=== PATIENT | male | born 2000 | race Caucasian/White ===

== ENCOUNTER 2023-07-10 19:39 | Emergency (ER) | payer MEDICAID ==
[~2023-07-10] VITALS: Ht 170.2 cm; Wt 86.0 kg
[2023-07-10 19:45] VITALS: O2SAT 96
[2023-07-10] MEDS ORDERED: MORPHINE SULFATE 4 MG/ML CPJ (NOT FOR IM USE) IV STA (23:53)
[2023-07-10] MEDS ORDERED: ONDANSETRON HCL 4MG/2ML INJ IV STA (23:53)
[2023-07-10 23:57] LABS: BASOPHILS % 0.3 % (0.0-2.0); HEMATOCRIT. 50.8 % (42.0-52.0); LYMPHOCYTES % 11.7 % (20.0-50.0); MEAN CORPUSCULAR HEMOGLOBIN 31.5 pg (28.0-32.0); MEAN CORPUSCULAR HGB CONC 33.5 g/dL (31.0-37.0); MEAN CORPUSCULAR VOLUME 94.2 fL (80.0-94.0); MEAN PLATELET VOLUME 8.7 fl (7.4-10.4); MONOCYTES % 4.2 % (2.0-8.0); NEUTROPHILS % 83.8 % (40.0-76.0); PLATELET 237 x1000/uL (130-400); RED BLOOD CELL COUNT 5.39 mill/uL (4.7-6.1); RED CELL DISTRIBUTION WIDTH 13.3 % (11.6-14.6); WHITE BLOOD COUNT 17.9 x1000/uL (4.5-11.0)
[2023-07-11] MEDS ORDERED: SODIUM CHLORIDE 0.9% 1,000 ML IV ONE
[2023-07-11 01:46] LABS: ALANINE AMINOTRANSFERASE 22 IU/L (10-49); ALBUMIN 4.5 g/dL (3.2-4.8); ASPARTATE AMINOTRANSFERASE 30 IU/L (<34); BILIRUBIN TOTAL 1.5 mg/dL (0.1-1.0); CALCIUM 9.3 mg/dL (8.7-10.4); CARBON DIOXIDE 19 mEq/L (21-32); CHLORIDE 105 mEq/L (98-107); CREATININE 0.9 mg/dL (0.6-1.3); GLUCOSE 92 mg/dL (70-105); POTASSIUM 3.9 mEq/L (3.5-5.1); PROTEIN TOTAL 7.8 g/dL (6.0-8.3); SODIUM 137 mEq/L (136-145); TROPONIN I HIGH SENSITIVITY 24 ng/L (3.0-53); UREA NITROGEN BLOOD 15 mg/dL (9-23)
[2023-07-11 01:53] LABS: ETHANOL BLOOD < 10 mg/dL (<10)
[2023-07-11 02:00] VITALS: TEMP 98
[2023-07-11] MEDS ORDERED: ACETAMINOPHEN 325MG TABLET PO ONE (02:45)
[2023-07-11 03:04] LABS: INR 1.1; PROTHROMBIN TIME 11.5 sec (9.6-11.0)
[2023-07-11 04:00] VITALS: BP 115/67; PULSE 82; RESP 12
[2023-07-11] MEDS ORDERED: KEPP500 MT (04:20)
== END 2023-07-11 04:48 | disposition home or self-care (01) ==
LOC: ER 19:39
DX: R56.9 Unspecified convulsions (principal); R19.7 Diarrhea, unspecified
CPT/HCPCS: 85025; 36415 ×2; 71045; 96374; 96375; 99285; 80053; 80320; 85610; 84484; 70450; 96361; J2405; J2270; J7030; G0480